=== PATIENT | male | born 1945 | race Caucasian/White ===

== ENCOUNTER → 2016-06-05 | Outpatient (CLI) | payer MEDICARE, SELFPAY ==
[~2016-06-05] MED LIST: HALFPRIN81 MG PO; MOTRIN IB200 MG PO; PREDNISONE20 MG PO; VITAMIN C500 M1 PO
== END | disposition short-term general hospital (02) ==
LOC: LAB 10:31
DX: C61 Malignant neoplasm of prostate (principal); C79.51 Secondary malignant neoplasm of bone
CPT/HCPCS: J0897

== ENCOUNTER → 2016-07-03 | Outpatient (CLI) | payer MEDICARE, SELFPAY | END | disposition short-term general hospital (02) | LOC: CLONCO 09:08 → INF/INJ 09:29 → CLONCO 10:46 → INF/INJ 12:39 → EDSTATUS 16:52 → INF/INJ 16:52 → CLONCO 16:53 | DX: C61 Malignant neoplasm of prostate (principal) | CPT/HCPCS: J0897 ==

== ENCOUNTER → 2016-07-31 | Outpatient (CLI) | payer MEDICARE, SELFPAY | END | disposition short-term general hospital (02) | LOC: EDSTATUS 11:04 → CLONCO 11:04 → INF/INJ 13:03 | DX: C61 Malignant neoplasm of prostate (principal); C79.51 Secondary malignant neoplasm of bone | CPT/HCPCS: J0897 ==

== ENCOUNTER → 2016-08-28 | Outpatient (CLI) | payer MEDICARE, SELFPAY | END | disposition short-term general hospital (02) | LOC: CLONCO 07-31 04:10 | DX: C61 Malignant neoplasm of prostate (principal); C79.51 Secondary malignant neoplasm of bone ==